=== PATIENT | female | born 1975 | race Caucasian/White ===

== ENCOUNTER 2016-12-13 11:41 | Emergency (ER) | payer OTHER ==
[2016-12-13 12:00] VITALS: BP 121/79; PULSE 78; RESP 20; TEMP 98.1
--- NOTE | 2016-12-13 13:14 | ED ---
Female Urogenital HPI - General Chief complaint: Urogenital Stated complaint: Tampon stuck Time Seen by Provider: 12/13/16 12:49 Source: patient, RN notes reviewed, old records reviewed Mode of arrival: ambulatory Limitations: no limitations - History of Present Illness Initial comments: This is a 41-year-old female presenting to the emergency Department chief complaint of concern for a tampon in her vaginal vault. Patient reports that she is recently getting out of her. She reports that she did have intercourse with her boyfriend does not concern for sexually transmitted infection. She states that she's noticed a foul odor and discharge for the past day. She is concerned that this could be related to tampon stuck. She denies any abdominal pain. She denies any dysuria or hematuria. She denies any chance of - Related Data Previous Rx's Medication Instructions Recorded metroNIDAZOLE [Flagyl] 500 mg PO BID #14 tab 12/13/16 Allergies Allergy/AdvReac Type Severity Reaction Status Date / Time No Known Allergies Allergy Verified 12/13/16 11:59 Review of Systems ROS Statement: Those systems with pertinent positive or pertinent negative responses have been documented in the HPI. ROS Other: All systems not noted in ROS Statement are negative. Past Medical History Additional Past Medical History / Comment(s): hepatitis C History of Any Multi-Drug Resistant Organisms: None Reported Past Surgical History: Breast Surgery Additional Past Surgical History / Comment(s): left breast lump removal Past Psychological History: No Psychological Hx Reported Smoking Status: Current every day smoker Past Alcohol Use History: Occasional Past Drug Use History: Heroin General Exam - General Exam Comments Initial Comments: This is a 41-year-old female. No acute distress. Limitations: no limitations General appearance: alert, in no apparent distress Head exam: Present: atraumatic, normocephalic, normal inspection Eye exam: Present: normal appearance, PERRL, EOMI. Absent: scleral icterus, conjunctival injection, periorbital swelling ENT exam: Present: normal exam, mucous membranes moist Neck exam: Present: normal inspection. Absent: tenderness, meningismus, lymphadenopathy Respiratory exam: Present: normal lung sounds bilaterally. Absent: respiratory distress, wheezes, rales, rhonchi, stridor Cardiovascular Exam: Present: regular rate, normal rhythm, normal heart sounds. Absent: systolic murmur, diastolic murmur, rubs, gallop, clicks GI/Abdominal exam: Present: soft, normal bowel sounds. Absent: distended, tenderness, guarding, rebound, rigid External exam: Present: normal external exam Speculum exam: Present: normal speculum exam, vaginal discharge (scant vaginal discharge), other (foul odor) By manual exam: Present: normal by manual exam. Absent: cervical motion tenderness, adnexal tenderness Extremities exam: Present: normal inspection, full ROM, normal capillary refill. Absent: tenderness, pedal edema, joint swelling, calf tenderness Back exam: Present: normal inspection Neurological exam: Present: alert, oriented X3, CN II-XII intact Psychiatric exam: Present: normal affect, normal mood Skin exam: Present: warm, dry, intact, normal color. Absent: rash Course Vital Signs 12/13/16 11:56 Temperature 98.1 F Pulse Rate 78 Respiratory 20 Rate Blood Pressure 121/79 O2 Sat by Pulse 98 Oximetry Medical Decision Making - Medical Decision Making 41-year-old female chief complaint of possible foreign body within the vaginal vault, tampon. Patient also states she's had some vaginal discharge and followed her for the past day. Patient does not have tampon within the vaginal vault. There is scant discharge and foul odor. Patient symptoms are consistent with bacterial vaginosis. We did do a gonorrhea and Chlamydia culture as well. Patient will be given a prescription for Flagyl. Patient understands treatment plan will comply. Return parameters were discussed. Disposition Clinical Impression: Bacterial vaginosis Disposition: HOME SELF-CARE Condition: Good Instructions: Bacterial Vaginosis (ED) Additional Instructions: Patient advised at pelvic rest for the next 2 weeks. Take medications as prescribed. Follow-up with PCP. Establish care with a [facility]. Patient cannot drink any alcohol while taking the antibiotic. Prescriptions: metroNIDAZOLE [Flagyl] 500 mg PO BID #14 tab Referrals: Nonstaff,Physician [Primary Care Provider] - 1-2 days Parisa Pino DO [Doctor of Osteopathic Medicine] - 1-2 days Time of Disposition: 13:11
[2016-12-13 13:36] LABS: Appearance,Urine Clear (Clear); Bacteria,Urine Rare /hpf; Bilirubin,Urine Negative (Negative); Glucose,Urine (UA) Negative (Negative); Ketones,Urine Negative (Negative); Leukocyte Esterase,Urine Negative (Negative); Mucus,Urine Occasional /hpf; Nitrite,Urine Negative (Negative); Particle Count 11711; Protein,Urine Trace (Negative); RBC,Urine <1 /hpf (0-5); Specific Gravity,Urine 1.019 (1.001-1.035); Squamous Epithelial Cell,Urine 5 /hpf (0-4); UA Billing (MACRO vs. MICRO) MICRO; WBC,Urine 3 /hpf (0-5)
== END 2016-12-13 13:27 | disposition home or self-care (01) ==
LOC: EC 11:41
DX: N76.0 Acute vaginitis (principal); B96.89 Other specified bacterial agents as the cause of diseases classified elsewhere; F17.200 Nicotine dependence, unspecified, uncomplicated
CPT/HCPCS: 81001; 81025; 87070; 87205; 87491; 87591; 87808; 99284

== ENCOUNTER 2017-01-27 12:42 | Inpatient (IN) | payer MEDICAID, OTHER ==
--- NOTE | 2017-01-27 13:10 | ED ---
General Adult HPI - General Chief complaint: Psychiatric Symptoms Stated complaint: Mental Health Time Seen by Provider: 01/27/17 12:50 Source: patient, RN notes reviewed Mode of arrival: ambulatory Limitations: no limitations - History of Present Illness Initial comments: 41-year-old female presents to the emergency department with a chief complaint of suicidal ideation and depression. Patient states she is to be a heroin addict she moved up here now she is becoming alcoholic. Patient states she's been depressed since she's had a lot of losses. Patient states she has had thoughts of overdosing on heroin And her life. Patient states that she did drink last night but she denies drinking today. Patient denies any nausea vomiting or any other complaints at this time.Patient denies any recent fever, chills, shortness of breath, chest pain, back pain, abdominal pain, nausea vomiting, numbness or tingling, dysuria or hematuria, constipation or diarrhea, headaches or visual changes, or any other current symptoms. - Related Data Home Medications Medication Instructions Recorded Confirmed No Known Home Medications [No 01/27/17 01/27/17 Known Home Medications] Allergies Allergy/AdvReac Type Severity Reaction Status Date / Time No Known Allergies Allergy Verified 01/27/17 14:16 Review of Systems ROS Statement: Those systems with pertinent positive or pertinent negative responses have been documented in the HPI. ROS Other: All systems not noted in ROS Statement are negative. Past Medical History Additional Past Medical History / Comment(s): hepatitis C History of Any Multi-Drug Resistant Organisms: None Reported Past Surgical History: Breast Surgery Additional Past Surgical History / Comment(s): left breast lump removal Past Psychological History: Depression Smoking Status: Current every day smoker Past Alcohol Use History: Abuse, Heavy Past Drug Use History: Heroin General Exam Limitations: no limitations General appearance: alert, in no apparent distress Neck exam: Present: normal inspection. Absent: tenderness, meningismus, lymphadenopathy Respiratory exam: Present: normal lung sounds bilaterally. Absent: respiratory distress, wheezes, rales, rhonchi, stridor Cardiovascular Exam: Present: regular rate, normal rhythm, normal heart sounds. Absent: systolic murmur, diastolic murmur, rubs, gallop, clicks Neurological exam: Present: alert, oriented X3 Psychiatric exam: Present: depressed, suicidal ideation. Absent: homicidal ideation Skin exam: Present: warm, dry, intact, normal color. Absent: rash Course Vital Signs 01/27/17 12:50 Temperature 98.6 F Pulse Rate 122 H Respiratory 20 Rate Blood Pressure 135/75 O2 Sat by Pulse 99 Oximetry Medical Decision Making - Medical Decision Making 41-year-old female presents emergency department with a chief complaint of depression and suicidal ideation. At this time the patient. Suffering from any acute medical emergencies. At this time the patient is cleared to be evaluated by psychiatry. At this time the patient was evaluated. This time patient will be admitted for continued care. Patient is in agreement with this plan. - Lab Data Lab Results 01/27/17 Range/Units 13:29 Urine Opiates Screen Not Detected (NotDetected) Ur Oxycodone Screen Not Detected (NotDetected) Urine Methadone Screen Not Detected (NotDetected) Ur Propoxyphene Screen Not Detected (NotDetected) Ur Barbiturates Screen Not Detected (NotDetected) U Tricyclic Antidepress Not Detected (NotDetected) Ur Phencyclidine Scrn Not Detected (NotDetected) Ur Amphetamines Screen Not Detected (NotDetected) U Methamphetamines Scrn Not Detected (NotDetected) U Benzodiazepines Scrn Not Detected (NotDetected) Urine Cocaine Screen Not Detected (NotDetected) U Marijuana (THC) Screen Not Detected (NotDetected) Disposition Clinical Impression: Suicidal ideation Disposition: TRANSFER TO PSYCH HOSP/UNIT
[2017-01-27] MEDS ORDERED: ZIPRASIDONE 20 MG VIAL IM PRN (17:04)
[2017-01-27] MEDS ORDERED: MAG HYDROX/AL HYDROX/SIMETH 30 ML CUP PO PRN (17:04)
[2017-01-27] MEDS ORDERED: MAGNESIUM HYDROXIDE 2,400 MG/10 ML CUP PO PRN (17:04)
--- NOTE | 2017-01-27 17:30 | P.HPMEDMHU ---
History of Present Illness H&P Date: 01/27/17 Chief Complaint: suicidial ideation Patient is a 41-year-old female with a known history of hepatitis C, depression, and tobacco abuse who presented to the emergency department with suicidal ideation. She states that she was thinking about taking an overdose of heroin or alcohol to end her life. She has been struggling with depression since March 2016 when her boyfriend of 13 years . She reports that she was diagnosed with hepatitis C approximately 15 years ago. They wanted to put her on some medication for this but she never followed up and has not seen a doctor regarding this since then. That she was an IV heroin user until approximately one year ago. She then replaced her hairline with alcohol last March after the of her boyfriend. She states that she drinks greater than 1 5th of Vodka daily. She states that she stopped drinking for less than 24 hours recently and her friend reported that she had a seizure. She did not seek medical attention but did resume drinking alcohol after this. She moved onto [place] from [place] and she stopped using heroin. She reports feeling shaky and tremulous. She reports feeling fidgety and having the sensation of bugs crawling all over her. She denies any recent illnesses such as coughs, colds, fevers, and chills. Review of Systems General: no fever/chills, no rigors, no weight loss/weight gain, no change in appetite Eyes: No double vision, no unusual blurry vision, no loss of vision ENT: No rhinorrhea, congestion, no trush Cardiovascular: No chest pain, no palpitations, no syncope, no edema, No paroxysmal nocturnal dyspnea, No dizziness Pulmonary: No shortness of breath, no wheezing, no cough, hemoptysis Abdominal: No abdominal pain, no constipation, no diarrhea, no vomiting, + nausea, no distention Genitourinary: No dysuria, no urinary frequency, no hematuria, no unusual discharge/odor Neuro: No unusual paresthesias, no unusual paresis/paralysis, no headache Dermatologic: No unusual rashes, no unusual lesions, no unusual changes in nails Endocrinology: No intolerance to heat/cold, no excessive thirst,] no unusual fatigue Hematologic: No unusual bruising or bleeding, no unusual cervical lymphadenopathy Psychiatric: + Tremors, + tactile sensation, denies hallucinations, No changes in mood or behaviors, no changes in sleep pattern Past Medical History Additional Past Medical History / Comment(s): hepatitis C History of Any Multi-Drug Resistant Organisms: None Reported Past Surgical History: Breast Surgery Additional Past Surgical History / Comment(s): left breast lump removal, facial reconstruction after a dog bite as a child with 99 stitches Past Psychological History: Depression Smoking Status: Current every day smoker Past Alcohol Use History: Abuse, Heavy Past Drug Use History: Heroin, IV Drug Use Additional History: Family history of diabetes mellitus type 2 and multiple forms of cancer she is unsure which. Medications and Allergies Home Medications Medication Instructions Recorded Confirmed Type No Known Home Medications [No 01/27/17 01/27/17 History Known Home Medications] Allergies Allergy/AdvReac Type Severity Reaction Status Date / Time No Known Allergies Allergy Verified 01/27/17 14:16 Physical Exam Osteopathic Statement: *. No significant issues noted on an osteopathic structural exam other than those noted in the History and Physical/Consult. Vitals: Vital Signs Temp Pulse Pulse Resp BP BP Pulse Ox 01/27/17 17:05 99.5 F 83 18 137/92 99 01/27/17 16:32 98.8 F 93 18 138/90 97 01/27/17 12:50 98.6 F 122 H 20 135/75 99 Intake and Output 01/27/17 01/27/17 01/27/17 06:59 14:59 22:59 Other: Weight 71.214 kg 70.9 kg Patient Weight 01/28/17 06:59 Weight 70.9 kg General: non toxic, no distress, appears at stated age, normal weight Derm: no rashes, no lesions, no ulcers, no unusual ecchymoses Head: atraumatic, normocephalic, symmetric Eyes: EOMI, no lid lag, anicteric sclera, pupils equal round reactive to light ENT: no post nasal drip, no thrush , nearest patent, no pharyngeal erythema Neck: No thyromegaly, no cervical lymphadenopathy, trachea midline, supple Mouth: no lip lesion, mucus membranes moist Cardiovascular: S1S2 reg, no murmur, positive posterior tibial pulse bilateral, no edema , no JVD, no clubbing, no cyanosis, capillary refill less than 2 seconds Lungs: CTA bilateral, no rhonchi, no rales , no accessory muscle use Abdominal: soft, nontender to palpation, no guarding, no appreciable organomegaly, normal bowel sounds Ext: no gross muscle atrophy, muscle strength 5 out of 5 in all 4 extremities grossly, no contractures, Neuro: Tremors, CN II-XI grossly intact, light touch intact all 4 extremities, finger to nose within normal limits, Psych: Alert, oriented, Flat affect, restlessness Cranial Nerve Examination - Cranial Nerves Cranial Nerve II- Optic: Intact Cranial Nerve III- Oculomotor: Intact Cranial Nerve IV- Trochlear: Intact Cranial Nerve V- Trigeminal: Intact Cranial Nerve - Abducens: Intact Cranial Nerve VII- Facial: Intact Cranial Nerve VIII- Auditory: Intact Cranial Nerve IX- Glossopharyngeal: Intact Cranial Nerve X- Vagus: Intact Cranial Nerve XI- Accessory: Intact Cranial Nerve XII- Hypoglossal: Intact Assessment and Plan Plan: #Hepatitis C -Diagnosed approximately 15 years ago, has not had treatment since then -Check liver function profile, check hepatitis C viral load, check alpha- fetoprotein -Screen for HIV and hep B -Check CBC #Alcohol abuse with impending delirium tremens -Seizure precautions -[facility] protocol -Thiamine, folic acid, and multivitamin supplementation #Tobacco abuse -Cessation -Supplementation #Suicidal ideation -Your psychiatric management We'll plan on following up on her blood work results in the next 1-2 days, any abnormalities are noted we'll plan on re-seen the patient Thank you for allowing us to participate in the care of this patient. We will follow peripherally. Do not hesitate to contact us with questions. Someone can be reached from the [facility] hospitalist group at all hours of the day at [phone].
[2017-01-27] MEDS: LORazepam 1 MG TAB PO PRN (17:38)
[2017-01-27] MEDS: NICOTINE 14MG/24HR PATCH TRANSDERM SCH (17:39)
[2017-01-27] MEDS: ACETAMINOPHEN TAB 325 MG TAB PO PRN (17:39)
[2017-01-27] MEDS: DIAZEPAM 5 MG TAB PO SCH (22:03)
[2017-01-28] MEDS: LORazepam 1 MG TAB PO PRN ×3 (06:27→20:53)
[2017-01-28] MEDS: ACETAMINOPHEN TAB 325 MG TAB PO PRN ×2 (06:27→13:31)
[2017-01-28 08:08] LABS: RBC 4.35 m/uL (3.80-5.40); WBC 4.8 k/uL (3.8-10.6); WBC (Perox) 4.91
[2017-01-28 08:09] LABS: Basophils % (A) 1 %; CH 32.2; CHCM 34.3; Eosinophils # (A) 0.1 k/uL (0-0.7); Eosinophils % (A) 3 %; HDW 2.42; HGB 13.6 gm/dL (11.4-16.0); Luc % (Auto) 2; Lymphocytes # (A) 1.2 k/uL (1.0-4.8); Lymphocytes % (A) 24 %; MCH 31.3 pg (25.0-35.0); MCHC 33.2 g/dL (31.0-37.0); MCV 94.2 fL (80.0-100.0); Mean Platelet Volume 9.5; Monocytes # (A) 0.3 k/uL (0-1.0); Monocytes % (A) 7 %; Neutrophils # (A) 3.1 k/uL (1.3-7.7); Neutrophils % (A) 64 %; RDW 13.1 % (11.5-15.5)
[2017-01-28 08:25] LABS: ALT 161 U/L (9-52); AST 148 U/L (14-36); Alkaline Phosphatase 55 U/L (38-126); Anion Gap 7 mmol/L; Bilirubin, Delta 0.2 mg/dL (0.0-0.2); Blood Urea Nitrogen 10 mg/dL (7-17); Calcium 9.1 mg/dL (8.4-10.2); Carbon Dioxide 24 mmol/L (22-30); Chloride 104 mmol/L (98-107); Glucose 77 mg/dL (74-99); Non-African American GFR(MDRD) >60 (>60 ml/min/1.73 sqM); Potassium 4.3 mmol/L (3.5-5.1); Sodium 135 mmol/L (137-145); Total Bilirubin 0.8 mg/dL (0.2-1.3); Total Protein 8.1 g/dL (6.3-8.2)
[2017-01-28] MEDS: NICOTINE 14MG/24HR PATCH TRANSDERM SCH (08:40)
[2017-01-28] MEDS: DIAZEPAM 5 MG TAB PO SCH ×3 (08:40→21:32)
[2017-01-28 08:53] LABS: Hepatitis B Surface Ag Index 0.08
[2017-01-28] MEDS: THIAMINE 100 MG TAB PO SCH (12:41)
[2017-01-28] MEDS: MULTIVITAMINS, THERA 1 EACH TAB PO SCH (12:41)
[2017-01-28] MEDS: FOLIC ACID 1 MG TAB PO SCH (12:41)
[2017-01-28 13:25] LABS: Hepatitis B Surface Antibody Reactive (Non-Reactive)
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
[2017-01-29] MEDS: ACETAMINOPHEN TAB 325 MG TAB PO PRN ×2 (08:00→16:30)
[2017-01-29] MEDS: DIAZEPAM 5 MG TAB PO SCH ×3 (08:00→21:22)
[2017-01-29] MEDS: ESCITALOPRAM 10 MG TAB PO SCH (08:00)
[2017-01-29] MEDS: NICOTINE 14MG/24HR PATCH TRANSDERM SCH (08:01)
[2017-01-29 09:28] LABS: Basophils % (A) 0 %; CH 30.9; CHCM 33.5; Eosinophils # (A) 0.1 k/uL (0-0.7); Eosinophils % (A) 3 %; HCT 41.7 % (34.0-46.0); HDW 2.54; HGB 14.6 gm/dL (11.4-16.0); Luc # (Auto) 0.07; Luc % (Auto) 2; Lymphocytes # (A) 1.2 k/uL (1.0-4.8); Lymphocytes % (A) 27 %; MCH 32.3 pg (25.0-35.0); MCV 92.5 fL (80.0-100.0); Mean Platelet Volume 8.7; Monocytes # (A) 0.3 k/uL (0-1.0); Monocytes % (A) 6 %; Neutrophils # (A) 2.9 k/uL (1.3-7.7); Neutrophils % (A) 63 %; RBC 4.51 m/uL (3.80-5.40); RDW 12.5 % (11.5-15.5); WBC 4.5 k/uL (3.8-10.6); WBC (Perox) 4.49
[2017-01-29 09:42] LABS: Anion Gap 10 mmol/L; Blood Urea Nitrogen 9 mg/dL (7-17); Calcium 9.8 mg/dL (8.4-10.2); Carbon Dioxide 21 mmol/L (22-30); Chloride 105 mmol/L (98-107); Glucose 163 mg/dL (74-99); Non-African American GFR(MDRD) >60 (>60 ml/min/1.73 sqM); Potassium 4.2 mmol/L (3.5-5.1); Sodium 136 mmol/L (137-145)
[2017-01-29] MEDS: LORazepam 1 MG TAB PO PRN ×4 (10:30→20:18)
[2017-01-29] MEDS: FOLIC ACID 1 MG TAB PO SCH (12:35)
[2017-01-29] MEDS: MULTIVITAMINS, THERA 1 EACH TAB PO SCH (12:36)
[2017-01-29] MEDS: THIAMINE 100 MG TAB PO SCH (12:36)
--- NOTE | 2017-01-29 20:07 | P.PN ---
Subjective Principal diagnosis: Depressive disorder Patient reports she is tolerating Valium well and it is helping control her withdrawal symptoms. She reports that post discharge her plan is to go move back to [place] as she a better social network there. Patient states that while she does feel depressed which she attributes to past life choices and alcohol, she has no desire to kill herself. She states she just wants to get off alcohol and "get the hell out of here." At this time, patient denies SI/HI/AVH. Objective - Vital Signs Vital signs: Vital Signs Temp 98.1 F 01/29/17 06:42 Pulse 120 H 01/29/17 16:32 Resp 18 01/29/17 16:32 BP 121/81 01/29/17 16:32 Pulse Ox 99 01/27/17 17:05 - Labs CBC & Chem 7: 01/29/17 09:03 01/29/17 09:03 Labs: Abnormal Lab Results - Last 24 Hours (Table) 01/29/17 01/29/17 Range/Units 09:03 09:03 Plt Count 105 L (150-450) k/uL Sodium 136 L (137-145) mmol/L Carbon Dioxide 21 L (22-30) mmol/L Glucose 163 H (74-99) mg/dL Assessment and Plan (1) Depressive disorder Narrative/Plan: continue Lexapro 10-mg PO QAM Status: Acute (2) Alcohol use disorder, severe, dependence Narrative/Plan: continue Valium withdrawal protocol Status: Acute (3) Opioid use disorder, severe, in sustained remission Status: Acute Plan: -continue hospitalization, patient has a history of alcohol withdrawal seizures -once stable, patient will need OP referrals for both psychiatric and substance abuse -patient encourage to participate in her recovery, attend group and recreational therapies, and assist treatment team in developing a safe discharge plan
[2017-01-30 06:12] VITALS: TEMP 97.6
[2017-01-30] MEDS: ESCITALOPRAM 10 MG TAB PO SCH (08:08)
[2017-01-30] MEDS: NICOTINE 14MG/24HR PATCH TRANSDERM SCH (08:08)
[2017-01-30] MEDS: ACETAMINOPHEN TAB 325 MG TAB PO PRN (08:09)
[2017-01-30] MEDS: DIAZEPAM 5 MG TAB PO SCH (08:36)
[2017-01-30] MEDS ORDERED: DIAZEPAM 5 MG TAB PO SCH (09:00)
[2017-01-30] MEDS: LORazepam 1 MG TAB PO PRN ×2 (10:27→13:03)
[2017-01-30] MEDS: MULTIVITAMINS, THERA 1 EACH TAB PO SCH (13:02)
[2017-01-30] MEDS: THIAMINE 100 MG TAB PO SCH (13:02)
[2017-01-30] MEDS: FOLIC ACID 1 MG TAB PO SCH (13:02)
[2017-01-30 13:05] VITALS: BP 136/79; PULSE 117; RESP 18
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
== END 2017-01-30 14:32 | disposition home or self-care (01) | DRG 881 ==
LOC: EC 12:42 → 3MHU 16:27
PROVIDERS: ADMIT Psychiatry & Neurology Psychiatry; ATTEND Psychiatry & Neurology Psychiatry
DX: F32.9 Major depressive disorder, single episode, unspecified (principal); F11.20 Opioid dependence, uncomplicated; R45.851 Suicidal ideations; F10.239 Alcohol dependence with withdrawal, unspecified; F17.200 Nicotine dependence, unspecified, uncomplicated; B19.20 Unspecified viral hepatitis C without hepatic coma
CPT/HCPCS: 80048; 80053; 80306; 82075; 82105; 82248; 84443; 85025; 86704; 86705; 86706; 87340; 87390; 99285